=== PATIENT | male | born 1950 | race Caucasian/White ===

== ENCOUNTER 2020-12-02 10:20 | Inpatient (IN) | payer MEDICARE ==
[~2020-12-02] VITALS: Ht 180.3 cm; Wt 72.6 kg
[2020-12-02] MEDS ORDERED: PANTOPRAZOLE 40 MG 10ML VIAL IV STA (10:46)
[2020-12-02] MEDS ORDERED: SODIUM CHLORIDE 0.9% 500ML 500 ML IV ONE (11:00)
[2020-12-02 11:20] LABS: BASOPHILS # (AUTO) 0.1 (0.0-0.1); BASOPHILS % 0.9 % (0.0-1.0); EOSINOPHILS # (AUTO) 0.1 (0.0-0.4); EOSINOPHILS % 1.1 % (0.0-6.0); HEMATOCRIT 28.7 % (38.2-49.6); HEMOGLOBIN 9.1 g/dL (14.0-18.0); LYMPHOCYTES # (AUTO) 0.5 (1.0-3.2); LYMPHOCYTES % 6.8 % (18.0-39.1); MEAN CORPUSCULAR HEMOGLOBIN 28.3 pg (28-32); MEAN CORPUSCULAR HGB CONC 31.7 g/dL (31-35); MEAN CORPUSCULAR VOLUME 89.1 fL (81-99); MONOCYTES # (AUTO) 0.7 (0.2-0.8); MONOCYTES % 10.4 % (4.4-11.3); NEUTROPHILS # (AUTO) 5.7 (2.1-6.9); NEUTROPHILS % 80.4 % (38.7-80.0); RED BLOOD COUNT 3.22 x10e6/uL (4.3-5.7); RED CELL DISTRIBUTION WIDTH 17.8 % (11.7-14.4)
[2020-12-02 11:26] LABS: PLATELET COUNT 43 x10e3/uL (140-360)
[2020-12-02 11:45] LABS: INR 1.7; PROTHROMBIN TIME 21.2 seconds (11.9-14.5)
[2020-12-02 11:46] LABS: PARTIAL THROMBOPLASTIN TIME 34.5 seconds (23.8-35.5)
[2020-12-02 11:48] LABS: B-TYPE NATRIURETIC PEPTIDE2 99.8 pg/mL (0-100)
[2020-12-02 12:00] LABS: ALANINE AMINOTRANSFERASE 38 IU/L (0-55); ALBUMIN 2.3 g/dL (3.5-5.0); ALBUMIN/GLOBULIN RATIO 0.9 (0.8-2.0); ALKALINE PHOSPHATASE 122 IU/L (40-150); ANION GAP 12.5 mmol/L (8-16); BLOOD UREA NITROGEN 27 mg/dL (7-26); BUN/CREATININE RATIO 26 (6-25); CALCIUM 7.2 mg/dL (8.4-10.2); CARBON DIOXIDE 22 mmol/L (22-29); CHLORIDE 98 mmol/L (98-107); CREATINE KINASE 138 IU/L (30-200); CREATININE, SERUM 1.04 mg/dL (0.72-1.25); EST GLOMERULAR FILTRATION RATE > 60 ML/MIN (60-); GLUCOSE 166 mg/dL (74-118); MAGNESIUM 2.5 MG/DL (1.3-2.1); POTASSIUM 4.5 mmol/L (3.5-5.1); SODIUM 128 mmol/L (136-145)
[2020-12-02 12:42] LABS: PLATELET ESTIMATE MODERATELY DECREASED; PLATELET MORPHOLOGY COMMENT NORMAL
[2020-12-02] MEDS ORDERED: ONDANSETRON HCL INJ 2MG/ML 2ML 2 MG/ML VIAL IV PRN (15:15)
[2020-12-02] MEDS: LACTULOSE SYRUP 20 GM/30 ML UDC RC SCH (16:35)
[2020-12-02] MEDS ORDERED: CEFTRIAXONE SOD 1 GM in DEXTROSE 5% 50ML 50 ML IV SCH (18:00)
[2020-12-02] MEDS ORDERED: CEFTRIAXONE SOD 1 GM VIAL ONE (18:31)
[2020-12-02 19:30] LABS: CREATINE KINASE MB 2.4 ng/mL (0-5.0)
[2020-12-02 19:48] LABS: % IRON SATURATION 7 % (15-50); IRON 17 ug/dL (65-175); TOTAL IRON BINDING CAPACITY 228 ug/dL (261-478); TRANSFERRIN 163 mg/dL (174-364)
[2020-12-02] MEDS ORDERED: ALBUMIN 25% 25GM 100ML 0.25 GM/ML BTL IV ONE ×2 (20:30→20:45)
[2020-12-02] MEDS ORDERED: ACETAMINOPHEN 650 MG SUPP PR PRN (20:30)
[2020-12-02] MEDS ORDERED: ALBUMIN 25% 12.5GM 50ML 100 ML IV ONE (20:48)
[2020-12-02] MEDS ORDERED: ACETAMINOPHEN 650 MG SUPP PR ONE (20:49)
[2020-12-02] MEDS: RIFAXIMIN 550 MG TABLET PO SCH (20:50)
[2020-12-02] MEDS ORDERED: SODIUM CHLORIDE 0.9% 1000ML 1,000 ML IV ONE (21:15)
[2020-12-02 22:37] LABS: CLARITY,URINE CLOUDY (CLEAR); COLOR,URINE YELLOW (YELLOW); LEUKOCYTE ESTERASE ,URINE NEGATIVE (NEGATIVE)
[2020-12-02 22:38] LABS: KETONES,URINE NEGATIVE (NEGATIVE); NITRITE,URINE NEGATIVE (NEGATIVE); PROTEIN,URINE DIPSTICK NEGATIVE (NEGATIVE); URINE UROBILINOGEN 0.2 mg/dL (0.2 - 1)
[2020-12-02 22:49] LABS: BACTERIA,URINE MANY /HPF; RBC,URINE >50 /HPF (0-5)
[2020-12-02 22:50] LABS: EPITHELIAL CELLS,URINE FEW /LPF
[2020-12-03] MEDS: LACTULOSE SYRUP 20 GM/30 ML UDC RC SCH ×2 (00:05→00:14)
[2020-12-03 06:03] LABS: BASOPHILS % 0.4 % (0.0-1.0); EOSINOPHILS # (AUTO) 0.1 (0.0-0.4); HEMATOCRIT 24.4 % (38.2-49.6); HEMOGLOBIN 7.6 g/dL (14.0-18.0); LYMPHOCYTES # (AUTO) 0.3 (1.0-3.2); MEAN CORPUSCULAR HEMOGLOBIN 27.7 pg (28-32); MEAN CORPUSCULAR HGB CONC 31.1 g/dL (31-35); MEAN CORPUSCULAR VOLUME 89.1 fL (81-99); MONOCYTES # (AUTO) 0.4 (0.2-0.8); MONOCYTES % 7.2 % (4.4-11.3); NEUTROPHILS # (AUTO) 4.5 (2.1-6.9); RED BLOOD COUNT 2.74 x10e6/uL (4.3-5.7); RED CELL DISTRIBUTION WIDTH 17.5 % (11.7-14.4)
[2020-12-03 06:06] LABS: PLATELET COUNT 35 x10e3/uL (140-360)
[2020-12-03 06:15] LABS: INR 1.91; PROTHROMBIN TIME 23.4 seconds (11.9-14.5)
[2020-12-03 06:22] LABS: ALANINE AMINOTRANSFERASE 33 IU/L (0-55); ALBUMIN 2.7 g/dL (3.5-5.0); ALBUMIN/GLOBULIN RATIO 1.2 (0.8-2.0); ALKALINE PHOSPHATASE 109 IU/L (40-150); ANION GAP 13.1 mmol/L (8-16); BLOOD UREA NITROGEN 33 mg/dL (7-26); BUN/CREATININE RATIO 38 (6-25); CARBON DIOXIDE 21 mmol/L (22-29); CHLORIDE 101 mmol/L (98-107); CREATININE, SERUM 0.87 mg/dL (0.72-1.25); EST GLOMERULAR FILTRATION RATE > 60 ML/MIN (60-); GLUCOSE 153 mg/dL (74-118); POTASSIUM 4.1 mmol/L (3.5-5.1); SODIUM 131 mmol/L (136-145)
[2020-12-03 06:26] LABS: CALCIUM 6.9 mg/dL (8.4-10.2)
[2020-12-03] MEDS ORDERED: LACTULOSE SYRUP 20 GM/30 ML UDC ONE ×2 (06:34→06:35)
[2020-12-03] MEDS: LACTATED RINGER'S 1,000 ML INJ SCH ×3 (06:43→20:44)
[2020-12-03] MEDS: RIFAXIMIN 550 MG TABLET PO SCH ×2 (06:43→20:44)
[2020-12-03 06:51] LABS: CREATINE KINASE MB 5.7 ng/mL (0-5.0)
[2020-12-03] MEDS ORDERED: IRON SUCROSE 100 MG in SODIUM CHLORIDE 0.9% 100 ML 100 ML IV SCH (07:30)
[2020-12-03] MEDS: LACTULOSE SYRUP 20 GM/30 ML UDC PO SCH ×3 (08:33→20:44)
[2020-12-03] MEDS: PANTOPRAZOLE 40 MG 10ML VIAL IV SCH (08:33)
[2020-12-03] MEDS ORDERED: MIDODRINE HCL 5 MG TABLET PO NR (08:45)
[2020-12-03] MEDS: MIDODRINE HCL 5 MG TABLET PO SCH ×2 (09:02→12:16)
[2020-12-03] MEDS: CALCIUM ACETATE 667 MG GELCAP PO SCH ×2 (15:00→20:44)
[2020-12-03 16:19] VITALS: BP 89/58
[2020-12-03] MEDS ORDERED: CEFTRIAXONE SOD 1 GM VIAL ONE (16:48)
[2020-12-03] MEDS ORDERED: CEFTRIAXONE SOD 1 GM in SODIUM CHLORIDE 0.9% 50ML 50 ML IV SCH (17:00)
[2020-12-03] MEDS: MIDODRINE 2.5 MG TAB PO SCH (18:11)
[2020-12-03 21:00] VITALS: BP 91/40
[2020-12-04] VITALS (10 sets, daily range): BP systolic 85–99; BP diastolic 40–60
[2020-12-04] MEDS: LACTATED RINGER'S 1,000 ML INJ SCH (04:40)
[2020-12-04 05:41] LABS: EOSINOPHILS # (AUTO) 0.2 (0.0-0.4); EOSINOPHILS % 8.8 % (0.0-6.0); LYMPHOCYTES # (AUTO) 0.3 (1.0-3.2); LYMPHOCYTES % 10.8 % (18.0-39.1); MEAN CORPUSCULAR HEMOGLOBIN 27.9 pg (28-32); MEAN CORPUSCULAR VOLUME 89.8 fL (81-99); MONOCYTES # (AUTO) 0.2 (0.2-0.8); MONOCYTES % 8.8 % (4.4-11.3); NEUTROPHILS # (AUTO) 1.8 (2.1-6.9); NEUTROPHILS % 71.2 % (38.7-80.0); RED BLOOD COUNT 2.26 x10e6/uL (4.3-5.7); RED CELL DISTRIBUTION WIDTH 17.2 % (11.7-14.4)
[2020-12-04] MEDS: LACTULOSE SYRUP 20 GM/30 ML UDC PO SCH ×3 (06:01→22:20)
[2020-12-04 06:04] LABS: HEMATOCRIT 20.3 % (38.2-49.6); HEMOGLOBIN 6.3 g/dL (14.0-18.0); PLATELET COUNT 23 x10e3/uL (140-360)
[2020-12-04 06:22] LABS: ALANINE AMINOTRANSFERASE 27 IU/L (0-55); ALBUMIN 2.2 g/dL (3.5-5.0); ALBUMIN/GLOBULIN RATIO 1.2 (0.8-2.0); ALKALINE PHOSPHATASE 96 IU/L (40-150); ANION GAP 7.9 mmol/L (8-16); BLOOD UREA NITROGEN 24 mg/dL (7-26); BUN/CREATININE RATIO 34 (6-25); CALCIUM 7.1 mg/dL (8.4-10.2); CARBON DIOXIDE 23 mmol/L (22-29); CHLORIDE 100 mmol/L (98-107); CREATININE, SERUM 0.71 mg/dL (0.72-1.25); EST GLOMERULAR FILTRATION RATE > 60 ML/MIN (60-); GLUCOSE 114 mg/dL (74-118); POTASSIUM 3.9 mmol/L (3.5-5.1); SODIUM 127 mmol/L (136-145)
[2020-12-04 08:03] LABS: EOSINOPHILS % (MANUAL) 8 % (0-7); LYMPHOCYTES % (MANUAL) 8 % (19-48); MONOCYTES % (MANUAL) 3 % (3.4-9.0); NEUTROPHILS % (MANUAL) 81 % (40-74)
[2020-12-04 08:06] LABS: HYPOCHROMASIA SLIGHT; POLYCHROMASIA FEW
[2020-12-04 08:08] LABS: ANISOCYTOSIS SLIGHT; PLATELET ESTIMATE MARKEDLY DECREASED; PLATELET MORPHOLOGY COMMENT NORMAL; RBC MORPHOLOGY COMMENT ABNORMAL
[2020-12-04] MEDS: MIDODRINE 2.5 MG TAB PO SCH ×3 (08:35→16:56)
[2020-12-04] MEDS ORDERED: SODIUM CHLORIDE 0.9% 250ML 250 ML IV SCH (09:00)
[2020-12-04] MEDS: RIFAXIMIN 550 MG TABLET PO SCH ×2 (09:12→22:20)
[2020-12-04] MEDS: CALCIUM ACETATE 667 MG GELCAP PO SCH ×3 (09:12→22:20)
[2020-12-04] MEDS: PANTOPRAZOLE 40 MG 10ML VIAL IV SCH (09:16)
[2020-12-04] MEDS: IRON SUCROSE 100 MG in SODIUM CHLORIDE 0.9% 100 ML 100 ML IV SCH (10:28)
[2020-12-04] MEDS ORDERED: BUMETANIDE1 MG PO (11:09)
[2020-12-04] MEDS ORDERED: PROTONIX20 MG PO (11:09)
[2020-12-04] MEDS ORDERED: LACTULOSE20 GM/30 M PO (11:09)
[2020-12-04] MEDS ORDERED: BACLOFEN20 MG PO (11:09)
[2020-12-04] MEDS ORDERED: GLYCOPYRROLATE2 MG PO (11:09)
[2020-12-04] MEDS ORDERED: SPIRONOLACTONE50 MG PO (11:09)
[2020-12-04] MEDS ORDERED: ELIQUIS2.5 MG PO (11:09)
[2020-12-04] MEDS ORDERED: LYRICA150 MG PO (11:09)
[2020-12-04] MEDS ORDERED: ULTRAM50 MG PO (11:09)
[2020-12-04] MEDS ORDERED: MESTINON60 MG PO (11:09)
[2020-12-04] MEDS ORDERED: XIFAXAN550 MG PO (11:09)
[2020-12-04] MEDS ORDERED: ANORO ELLIPTA1 EACH (11:09)
[2020-12-04] MEDS: PYRIDOSTIGMINE BROMIDE 60 MG TAB PO SCH ×3 (12:11→22:20)
[2020-12-04] MEDS ORDERED: SODIUM CHLORIDE 0.9% 250ML 250 ML ONE ×2 (13:51→18:38)
[2020-12-04] MEDS: GUAIFENESIN/DEXTROMETHORPHAN LIQD 5 ML UDC PO PRN ×2 (16:56→23:42)
[2020-12-04] MEDS: SPIRONOLACTONE 25 MG TAB PO SCH (18:05)
[2020-12-04] MEDS: BUMETANIDE 1 MG TAB PO SCH (18:06)
[2020-12-04] MEDS ORDERED: NON-FORMULARY MEDICATION (Glycopyrrolate 1 MG) PO SCH (22:00)
[2020-12-04] MEDS: GLYCOPYRROLATE 1 MG TAB PO SCH (22:11)
[2020-12-04] MEDS: APIXAB 2.5 MG TABLET PO SCH (22:18)
[2020-12-04] MEDS: CEFTRIAXONE SOD 1 GM in SODIUM CHLORIDE 0.9% 50ML 50 ML IV SCH (22:19)
[2020-12-04] MEDS: BACLOFEN 10 MG TAB PO SCH (22:20)
[2020-12-04] MEDS: PREGABALIN 75 MG CAP PO SCH (22:20)
[2020-12-04] MEDS ORDERED: PHYTONADIONE 10 MG/ML AMP INJ ONE (22:45)
[2020-12-05] VITALS (8 sets, daily range): BP systolic 85–105; BP diastolic 50–64
[2020-12-05] MEDS ORDERED: PHYTONADIONE 10MG/ML 2 ML ONE (00:50)
[2020-12-05] MEDS ORDERED: SODIUM CHLORIDE 0.9% 50ML 50 ML ONE (01:03)
[2020-12-05] MEDS ORDERED: BENZONATATE 100 MG CAP PO PRN (03:45)
[2020-12-05] MEDS ORDERED: FUROSEMIDE INJ 10 MG/ML 2 ML VIAL IV STA (03:47)
[2020-12-05] MEDS ORDERED: FUROSEMIDE INJ 10 MG/ML 2 ML VIAL ONE (03:54)
[2020-12-05] MEDS: BENZONATATE 100 MG CAP PO SCH ×4 (04:00→22:14)
[2020-12-05] MEDS: LACTULOSE SYRUP 20 GM/30 ML UDC PO SCH ×3 (06:40→22:14)
[2020-12-05] MEDS: GLYCOPYRROLATE 1 MG TAB PO SCH ×3 (06:40→22:14)
[2020-12-05 07:05] LABS: BASOPHILS % 0.2 % (0.0-1.0); EOSINOPHILS % 0.4 % (0.0-6.0); HEMATOCRIT 29.7 % (38.2-49.6); HEMOGLOBIN 9.6 g/dL (14.0-18.0); LYMPHOCYTES # (AUTO) 0.2 (1.0-3.2); MEAN CORPUSCULAR HEMOGLOBIN 28.1 pg (28-32); MEAN CORPUSCULAR HGB CONC 32.3 g/dL (31-35); MEAN CORPUSCULAR VOLUME 86.8 fL (81-99); MONOCYTES # (AUTO) 0.2 (0.2-0.8); NEUTROPHILS # (AUTO) 5.2 (2.1-6.9); NEUTROPHILS % 93.2 % (38.7-80.0); RED BLOOD COUNT 3.42 x10e6/uL (4.3-5.7); RED CELL DISTRIBUTION WIDTH 16.1 % (11.7-14.4)
[2020-12-05 07:29] LABS: ANION GAP 12.2 mmol/L (8-16); BLOOD UREA NITROGEN 20 mg/dL (7-26); BUN/CREATININE RATIO 25 (6-25); CALCIUM 7.5 mg/dL (8.4-10.2); CARBON DIOXIDE 20 mmol/L (22-29); CHLORIDE 100 mmol/L (98-107); CREATININE, SERUM 0.81 mg/dL (0.72-1.25); EST GLOMERULAR FILTRATION RATE > 60 ML/MIN (60-); GLUCOSE 134 mg/dL (74-118); POTASSIUM 4.2 mmol/L (3.5-5.1); SODIUM 128 mmol/L (136-145)
[2020-12-05 07:35] LABS: PLATELET COUNT 24 x10e3/uL (140-360)
[2020-12-05] MEDS ORDERED: FUROSEMIDE INJ 10 MG/ML 4 ML VIAL ONE (08:34)
[2020-12-05] MEDS ORDERED: FUROSEMIDE INJ 10 MG/ML 4 ML VIAL IV ONE (09:00)
[2020-12-05] MEDS: MIDODRINE 2.5 MG TAB PO SCH ×2 (09:00→12:54)
[2020-12-05] MEDS: APIXAB 2.5 MG TABLET PO SCH ×2 (09:00→21:54)
[2020-12-05] MEDS: PYRIDOSTIGMINE BROMIDE 60 MG TAB PO SCH ×4 (09:34→22:13)
[2020-12-05] MEDS: BUMETANIDE 1 MG TAB PO SCH (09:34)
[2020-12-05] MEDS: SPIRONOLACTONE 25 MG TAB PO SCH (09:34)
[2020-12-05] MEDS: CALCIUM ACETATE 667 MG GELCAP PO SCH ×3 (09:35→22:13)
[2020-12-05] MEDS: RIFAXIMIN 550 MG TABLET PO SCH ×2 (09:35→22:14)
[2020-12-05] MEDS: PANTOPRAZOLE 40 MG 10ML VIAL IV SCH (09:40)
[2020-12-05] MEDS: GUAIFENESIN/DEXTROMETHORPHAN LIQD 5 ML UDC PO PRN ×2 (09:41→17:04)
[2020-12-05] MEDS: IRON SUCROSE 100 MG in SODIUM CHLORIDE 0.9% 100 ML 100 ML IV SCH (10:00)
[2020-12-05] MEDS: BALSAM PERU/CASTOR OIL 60 GM OINT...G. TP SCH (10:00)
[2020-12-05] MEDS ORDERED: DEXTROSE 50% SYRINGE 50 ML IV PRN (12:45)
[2020-12-05] MEDS: LINEZOLID 600 MG/D5W 300ML 300 ML IV SCH (13:31)
[2020-12-05 13:46] LABS: BAND NEUTROPHILS % (MANUAL) 8 %; LYMPHOCYTES % (MANUAL) 1 % (19-48); MONOCYTES % (MANUAL) 3 % (3.4-9.0); NEUTROPHILS % (MANUAL) 88 % (40-74); PLATELET ESTIMATE MARKEDLY DECREASED
[2020-12-05 13:47] LABS: ANISOCYTOSIS SLIGHT; PLATELET MORPHOLOGY COMMENT NORMAL; POLYCHROMASIA FEW; RBC MORPHOLOGY COMMENT NORMAL
[2020-12-05] MEDS: MIDODRINE HCL 5 MG TABLET PO SCH (17:00)
[2020-12-05] MEDS: INSULIN REGULAR, HUMAN 100 UNIT/1 ML 3ML VIAL SQ SCH ×2 (17:15→22:30)
[2020-12-05] MEDS ORDERED: FUROSEMIDE INJ 10 MG/ML 2 ML VIAL IV ONE (18:00)
[2020-12-05] MEDS: CEFTRIAXONE SOD 1 GM in SODIUM CHLORIDE 0.9% 50ML 50 ML IV SCH (21:54)
[2020-12-05] MEDS: BACLOFEN 10 MG TAB PO SCH (22:03)
[2020-12-05] MEDS: PREGABALIN 75 MG CAP PO SCH (22:03)
[2020-12-06] VITALS (7 sets, daily range): BP systolic 84–101; BP diastolic 47–58
[2020-12-06] MEDS: LINEZOLID 600 MG/D5W 300ML 300 ML IV SCH ×2 (01:00→14:02)
[2020-12-06 05:25] LABS: EOSINOPHILS % 0.7 % (0.0-6.0); HEMATOCRIT 28.2 % (38.2-49.6); LYMPHOCYTES # (AUTO) 0.2 (1.0-3.2); LYMPHOCYTES % 7.8 % (18.0-39.1); MEAN CORPUSCULAR HEMOGLOBIN 27.9 pg (28-32); MEAN CORPUSCULAR HGB CONC 31.9 g/dL (31-35); MEAN CORPUSCULAR VOLUME 87.3 fL (81-99); MONOCYTES # (AUTO) 0.2 (0.2-0.8); MONOCYTES % 6.4 % (4.4-11.3); NEUTROPHILS # (AUTO) 2.4 (2.1-6.9); NEUTROPHILS % 84.7 % (38.7-80.0); RED BLOOD COUNT 3.23 x10e6/uL (4.3-5.7); RED CELL DISTRIBUTION WIDTH 16.2 % (11.7-14.4)
[2020-12-06 05:44] LABS: PLATELET COUNT 17 x10e3/uL (140-360)
[2020-12-06 05:47] LABS: BLOOD UREA NITROGEN 21 mg/dL (7-26); BUN/CREATININE RATIO 23 (6-25); CALCIUM 7.5 mg/dL (8.4-10.2); CARBON DIOXIDE 21 mmol/L (22-29); CHLORIDE 99 mmol/L (98-107); CREATININE, SERUM 0.92 mg/dL (0.72-1.25); EST GLOMERULAR FILTRATION RATE > 60 ML/MIN (60-); GLUCOSE 183 mg/dL (74-118); SODIUM 126 mmol/L (136-145)
[2020-12-06] MEDS: BENZONATATE 100 MG CAP PO SCH ×3 (06:03→22:00)
[2020-12-06] MEDS: LACTULOSE SYRUP 20 GM/30 ML UDC PO SCH ×3 (06:03→18:00)
[2020-12-06] MEDS: GLYCOPYRROLATE 1 MG TAB PO SCH ×3 (06:03→22:00)
[2020-12-06] MEDS: BALSAM PERU/CASTOR OIL 60 GM OINT...G. TP SCH (07:15)
[2020-12-06] MEDS: APIXAB 2.5 MG TABLET PO SCH ×2 (09:00→20:00)
[2020-12-06] MEDS: MIDODRINE HCL 5 MG TABLET PO SCH ×3 (09:00→16:30)
[2020-12-06] MEDS: GUAIFENESIN/DEXTROMETHORPHAN LIQD 5 ML UDC PO PRN (09:21)
[2020-12-06] MEDS: RIFAXIMIN 550 MG TABLET PO SCH ×2 (09:22→21:00)
[2020-12-06] MEDS: BUMETANIDE 1 MG TAB PO SCH (09:22)
[2020-12-06] MEDS: PANTOPRAZOLE 40 MG 10ML VIAL IV SCH (09:22)
[2020-12-06] MEDS: CALCIUM ACETATE 667 MG GELCAP PO SCH ×3 (09:22→21:00)
[2020-12-06] MEDS: PYRIDOSTIGMINE BROMIDE 60 MG TAB PO SCH ×4 (09:22→21:00)
[2020-12-06] MEDS: SPIRONOLACTONE 25 MG TAB PO SCH (09:22)
[2020-12-06] MEDS: INSULIN REGULAR, HUMAN 100 UNIT/1 ML 3ML VIAL SQ SCH ×4 (09:30→21:00)
[2020-12-06] MEDS: IRON SUCROSE 100 MG in SODIUM CHLORIDE 0.9% 100 ML 100 ML IV SCH (11:32)
[2020-12-06] MEDS: PREGABALIN 75 MG CAP PO SCH (21:00)
[2020-12-06] MEDS: BACLOFEN 10 MG TAB PO SCH (21:00)
[2020-12-06] MEDS: CEFTRIAXONE SOD 1 GM in SODIUM CHLORIDE 0.9% 50ML 50 ML IV SCH (22:00)
[2020-12-07] VITALS: BP 83/53
[2020-12-07] MEDS: LINEZOLID 600 MG/D5W 300ML 300 ML IV SCH ×2 (01:51→13:30)
[2020-12-07 04:00] VITALS: BP 79/59
[2020-12-07] MEDS: GLYCOPYRROLATE 1 MG TAB PO SCH ×2 (06:00→14:00)
[2020-12-07] MEDS: BENZONATATE 100 MG CAP PO SCH ×3 (06:00→22:00)
[2020-12-07] MEDS: LACTULOSE SYRUP 20 GM/30 ML UDC PO SCH ×4 (06:54→23:27)
[2020-12-07] MEDS: INSULIN REGULAR, HUMAN 100 UNIT/1 ML 3ML VIAL SQ SCH ×4 (07:30→21:00)
[2020-12-07 08:00] VITALS: BP 79/59
[2020-12-07] MEDS: APIXAB 2.5 MG TABLET PO SCH ×2 (08:00→20:00)
[2020-12-07] MEDS: MIDODRINE HCL 5 MG TABLET PO SCH ×3 (08:00→16:00)
[2020-12-07 08:15] LABS: BASOPHILS % 0.3 % (0.0-1.0); EOSINOPHILS # (AUTO) 0.1 (0.0-0.4); EOSINOPHILS % 1.9 % (0.0-6.0); HEMATOCRIT 27.7 % (38.2-49.6); HEMOGLOBIN 8.8 g/dL (14.0-18.0); LYMPHOCYTES # (AUTO) 0.2 (1.0-3.2); MEAN CORPUSCULAR HEMOGLOBIN 28.8 pg (28-32); MEAN CORPUSCULAR HGB CONC 31.8 g/dL (31-35); MEAN CORPUSCULAR VOLUME 90.5 fL (81-99); MONOCYTES # (AUTO) 0.3 (0.2-0.8); MONOCYTES % 8.4 % (4.4-11.3); NEUTROPHILS # (AUTO) 2.7 (2.1-6.9); NEUTROPHILS % 83.8 % (38.7-80.0); RED BLOOD COUNT 3.06 x10e6/uL (4.3-5.7); RED CELL DISTRIBUTION WIDTH 16.9 % (11.7-14.4)
[2020-12-07 08:24] LABS: PLATELET COUNT 19 x10e3/uL (140-360)
[2020-12-07 08:27] LABS: INR 2.06; PROTHROMBIN TIME 24.8 seconds (11.9-14.5)
[2020-12-07 08:33] LABS: CALCIUM IONIZED 1.2 mmol/L (1.09-1.30)
[2020-12-07 08:38] LABS: ALANINE AMINOTRANSFERASE 25 IU/L (0-55); ALBUMIN/GLOBULIN RATIO 0.9 (0.8-2.0); ALKALINE PHOSPHATASE 87 IU/L (40-150); ANION GAP 9.6 mmol/L (8-16); BLOOD UREA NITROGEN 22 mg/dL (7-26); BUN/CREATININE RATIO 25 (6-25); CALCIUM 7.4 mg/dL (8.4-10.2); CARBON DIOXIDE 22 mmol/L (22-29); CHLORIDE 100 mmol/L (98-107); CREATININE, SERUM 0.89 mg/dL (0.72-1.25); EST GLOMERULAR FILTRATION RATE > 60 ML/MIN (60-); GLUCOSE 160 mg/dL (74-118); MAGNESIUM 1.6 MG/DL (1.3-2.1); POTASSIUM 3.6 mmol/L (3.5-5.1); SODIUM 128 mmol/L (136-145)
[2020-12-07] MEDS: RIFAXIMIN 550 MG TABLET PO SCH ×2 (09:00→23:27)
[2020-12-07] MEDS: SPIRONOLACTONE 25 MG TAB PO SCH (09:00)
[2020-12-07] MEDS: BALSAM PERU/CASTOR OIL 60 GM OINT...G. TP SCH (09:00)
[2020-12-07] MEDS: PYRIDOSTIGMINE BROMIDE 60 MG TAB PO SCH ×4 (09:00→23:27)
[2020-12-07] MEDS: CALCIUM ACETATE 667 MG GELCAP PO SCH ×3 (09:00→21:00)
[2020-12-07] MEDS: PANTOPRAZOLE 40 MG 10ML VIAL IV SCH (09:00)
[2020-12-07] MEDS: BUMETANIDE 1 MG TAB PO SCH (09:00)
[2020-12-07 09:20] LABS: LYMPHOCYTES % (MANUAL) 6 % (19-48); MONOCYTES % (MANUAL) 8 % (3.4-9.0); NEUTROPHILS % (MANUAL) 86 % (40-74)
[2020-12-07 10:06] VITALS: BP 75/58
[2020-12-07] MEDS: IRON SUCROSE 100 MG in SODIUM CHLORIDE 0.9% 100 ML 100 ML IV SCH (11:00)
[2020-12-07 11:12] LABS: CLARITY,URINE CLEAR (CLEAR); COLOR,URINE YELLOW (YELLOW)
[2020-12-07 11:13] LABS: KETONES,URINE NEGATIVE (NEGATIVE); LEUKOCYTE ESTERASE ,URINE SMALL (NEGATIVE); NITRITE,URINE NEGATIVE (NEGATIVE); PROTEIN,URINE DIPSTICK NEGATIVE (NEGATIVE); URINE UROBILINOGEN 0.2 mg/dL (0.2 - 1)
[2020-12-07 11:22] LABS: WBC,URINE (MAN) >50 /HPF (0-5)
[2020-12-07 11:23] LABS: BACTERIA,URINE FEW /HPF; EPITHELIAL CELLS,URINE MODERATE /LPF; YEAST,URINE MODERATE
[2020-12-07] MEDS: MEROPENEM 1GM 100 ML IV SCH ×2 (12:45→20:00)
[2020-12-07 20:00] VITALS: BP 86/56
[2020-12-07] MEDS: PREGABALIN 75 MG CAP PO SCH (21:00)
[2020-12-07] MEDS: BACLOFEN 10 MG TAB PO SCH (23:27)
[2020-12-08] VITALS (8 sets, daily range): BP systolic 78–130; BP diastolic 50–96
[2020-12-08] MEDS: GLYCOPYRROLATE 1 MG TAB PO SCH ×4 (00:24→21:26)
[2020-12-08] MEDS: LINEZOLID 600 MG/D5W 300ML 300 ML IV SCH ×2 (01:30→16:21)
[2020-12-08] MEDS: MEROPENEM 1GM 100 ML IV SCH ×3 (04:22→20:35)
[2020-12-08] MEDS: BENZONATATE 100 MG CAP PO SCH ×3 (06:31→21:27)
[2020-12-08 07:06] LABS: EOSINOPHILS # (AUTO) 0.1 (0.0-0.4); EOSINOPHILS % 2.9 % (0.0-6.0); HEMATOCRIT 25.6 % (38.2-49.6); HEMOGLOBIN 8.4 g/dL (14.0-18.0); LYMPHOCYTES # (AUTO) 0.2 (1.0-3.2); LYMPHOCYTES % 4.8 % (18.0-39.1); MEAN CORPUSCULAR HEMOGLOBIN 29.1 pg (28-32); MEAN CORPUSCULAR HGB CONC 32.8 g/dL (31-35); MEAN CORPUSCULAR VOLUME 88.6 fL (81-99); MONOCYTES # (AUTO) 0.3 (0.2-0.8); NEUTROPHILS # (AUTO) 3.1 (2.1-6.9); RED BLOOD COUNT 2.89 x10e6/uL (4.3-5.7); RED CELL DISTRIBUTION WIDTH 17.1 % (11.7-14.4)
[2020-12-08 07:09] LABS: PLATELET COUNT 20 x10e3/uL (140-360)
[2020-12-08] MEDS: INSULIN REGULAR, HUMAN 100 UNIT/1 ML 3ML VIAL SQ SCH ×4 (07:30→20:44)
[2020-12-08 07:42] LABS: ALANINE AMINOTRANSFERASE 23 IU/L (0-55); ALBUMIN 1.8 g/dL (3.5-5.0); ALBUMIN/GLOBULIN RATIO 0.8 (0.8-2.0); ALKALINE PHOSPHATASE 91 IU/L (40-150); ANION GAP 10.6 mmol/L (8-16); BLOOD UREA NITROGEN 22 mg/dL (7-26); BUN/CREATININE RATIO 27 (6-25); CALCIUM 7.1 mg/dL (8.4-10.2); CARBON DIOXIDE 22 mmol/L (22-29); CHLORIDE 100 mmol/L (98-107); CREATININE, SERUM 0.81 mg/dL (0.72-1.25); EST GLOMERULAR FILTRATION RATE > 60 ML/MIN (60-); GLUCOSE 180 mg/dL (74-118); POTASSIUM 3.6 mmol/L (3.5-5.1); SODIUM 129 mmol/L (136-145)
[2020-12-08 07:52] LABS: CALCIUM IONIZED 1.1 mmol/L (1.09-1.30)
[2020-12-08 08:28] LABS: PLATELET ESTIMATE MARKEDLY DECREASED
[2020-12-08 08:29] LABS: PLATELET MORPHOLOGY COMMENT FEW LARGE
[2020-12-08] MEDS: APIXAB 2.5 MG TABLET PO SCH ×2 (09:01→20:32)
[2020-12-08] MEDS: MIDODRINE HCL 5 MG TABLET PO SCH ×3 (09:01→16:28)
[2020-12-08] MEDS: PANTOPRAZOLE 40 MG 10ML VIAL IV SCH (09:02)
[2020-12-08] MEDS: SPIRONOLACTONE 25 MG TAB PO SCH (09:02)
[2020-12-08] MEDS: RIFAXIMIN 550 MG TABLET PO SCH ×2 (09:03→20:33)
[2020-12-08] MEDS: BALSAM PERU/CASTOR OIL 60 GM OINT...G. TP SCH (09:03)
[2020-12-08] MEDS: LACTULOSE SYRUP 20 GM/30 ML UDC PO SCH ×2 (09:03→09:06)
[2020-12-08] MEDS: PYRIDOSTIGMINE BROMIDE 60 MG TAB PO SCH ×4 (09:03→20:33)
[2020-12-08] MEDS: BUMETANIDE 1 MG TAB PO SCH (09:03)
[2020-12-08] MEDS: CALCIUM ACETATE 667 MG GELCAP PO SCH ×3 (09:03→20:32)
[2020-12-08] MEDS: IRON SUCROSE 100 MG in SODIUM CHLORIDE 0.9% 100 ML 100 ML IV SCH (11:30)
[2020-12-08] MEDS: PREGABALIN 75 MG CAP PO SCH (20:32)
[2020-12-08] MEDS: BACLOFEN 10 MG TAB PO SCH (20:32)
[2020-12-09] VITALS (8 sets, daily range): BP systolic 87–104; BP diastolic 47–66
[2020-12-09] MEDS: LINEZOLID 600 MG/D5W 300ML 300 ML IV SCH ×2 (01:49→17:02)
[2020-12-09] MEDS: MEROPENEM 1GM 100 ML IV SCH ×3 (04:15→20:00)
[2020-12-09] MEDS: BENZONATATE 100 MG CAP PO SCH ×3 (05:29→22:00)
[2020-12-09] MEDS: GLYCOPYRROLATE 1 MG TAB PO SCH ×3 (05:29→22:00)
[2020-12-09 05:51] LABS: EOSINOPHILS # (AUTO) 0.1 (0.0-0.4); EOSINOPHILS % 3.8 % (0.0-6.0); HEMOGLOBIN 8.3 g/dL (14.0-18.0); LYMPHOCYTES # (AUTO) 0.2 (1.0-3.2); MEAN CORPUSCULAR HEMOGLOBIN 28.3 pg (28-32); MEAN CORPUSCULAR HGB CONC 31.9 g/dL (31-35); MEAN CORPUSCULAR VOLUME 88.7 fL (81-99); MONOCYTES # (AUTO) 0.3 (0.2-0.8); MONOCYTES % 8.2 % (4.4-11.3); NEUTROPHILS % 81.2 % (38.7-80.0); RED BLOOD COUNT 2.93 x10e6/uL (4.3-5.7); RED CELL DISTRIBUTION WIDTH 17.2 % (11.7-14.4)
[2020-12-09 06:10] LABS: PLATELET COUNT 22 x10e3/uL (140-360)
[2020-12-09 06:15] LABS: ALANINE AMINOTRANSFERASE 22 IU/L (0-55); ALBUMIN 1.7 g/dL (3.5-5.0); ALBUMIN/GLOBULIN RATIO 0.7 (0.8-2.0); ALKALINE PHOSPHATASE 84 IU/L (40-150); ANION GAP 7.9 mmol/L (8-16); BLOOD UREA NITROGEN 22 mg/dL (7-26); BUN/CREATININE RATIO 30 (6-25); CALCIUM 7.1 mg/dL (8.4-10.2); CARBON DIOXIDE 25 mmol/L (22-29); CHLORIDE 99 mmol/L (98-107); CREATININE, SERUM 0.74 mg/dL (0.72-1.25); EST GLOMERULAR FILTRATION RATE > 60 ML/MIN (60-); GLUCOSE 174 mg/dL (74-118); POTASSIUM 3.9 mmol/L (3.5-5.1); SODIUM 128 mmol/L (136-145)
[2020-12-09] MEDS: MIDODRINE HCL 5 MG TABLET PO SCH ×3 (08:19→17:05)
[2020-12-09] MEDS: APIXAB 2.5 MG TABLET PO SCH ×2 (08:19→20:00)
[2020-12-09] MEDS: CALCIUM ACETATE 667 MG GELCAP PO SCH ×3 (08:20→21:00)
[2020-12-09] MEDS: PANTOPRAZOLE 40 MG 10ML VIAL IV SCH (08:20)
[2020-12-09] MEDS: BUMETANIDE 1 MG TAB PO SCH (08:20)
[2020-12-09] MEDS: PYRIDOSTIGMINE BROMIDE 60 MG TAB PO SCH ×4 (08:20→21:00)
[2020-12-09] MEDS: SPIRONOLACTONE 25 MG TAB PO SCH (08:20)
[2020-12-09] MEDS: BALSAM PERU/CASTOR OIL 60 GM OINT...G. TP SCH (08:21)
[2020-12-09] MEDS: RIFAXIMIN 550 MG TABLET PO SCH ×2 (08:21→21:00)
[2020-12-09] MEDS: LACTULOSE SYRUP 20 GM/30 ML UDC PO SCH ×2 (08:29→17:02)
[2020-12-09 08:31] LABS: ANISOCYTOSIS SLIGHT; EOSINOPHILS % (MANUAL) 1 % (0-7); LYMPHOCYTES % (MANUAL) 4 % (19-48); MONOCYTES % (MANUAL) 5 % (3.4-9.0); NEUTROPHILS % (MANUAL) 90 % (40-74); PLATELET ESTIMATE MARKEDLY DECREASED; PLATELET MORPHOLOGY COMMENT NORMAL; RBC MORPHOLOGY COMMENT NORMAL
[2020-12-09] MEDS: INSULIN REGULAR, HUMAN 100 UNIT/1 ML 3ML VIAL SQ SCH ×4 (10:14→21:00)
[2020-12-09] MEDS: IRON SUCROSE 100 MG in SODIUM CHLORIDE 0.9% 100 ML 100 ML IV SCH (11:27)
[2020-12-09] MEDS: PREGABALIN 75 MG CAP PO SCH (21:00)
[2020-12-09] MEDS: BACLOFEN 10 MG TAB PO SCH (21:00)
[2020-12-10] VITALS: BP 100/66
[2020-12-10] MEDS: LINEZOLID 600 MG/D5W 300ML 300 ML IV SCH ×2 (01:42→14:19)
[2020-12-10 04:00] VITALS: BP 82/52
[2020-12-10] MEDS: MEROPENEM 1GM 100 ML IV SCH ×2 (04:00→13:14)
[2020-12-10] MEDS: GLYCOPYRROLATE 1 MG TAB PO SCH ×2 (05:10→13:23)
[2020-12-10] MEDS: BENZONATATE 100 MG CAP PO SCH ×2 (05:10→13:23)
[2020-12-10] MEDS: INSULIN REGULAR, HUMAN 100 UNIT/1 ML 3ML VIAL SQ SCH ×3 (07:30→16:30)
[2020-12-10 07:57] VITALS: BP 88/53
[2020-12-10 08:14] VITALS: BP 88/53
[2020-12-10] MEDS: TRAMADOL HCL 50 MG TAB PO PRN ×2 (09:27→10:01)
[2020-12-10] MEDS: LACTULOSE SYRUP 20 GM/30 ML UDC PO SCH ×3 (09:29→17:49)
[2020-12-10] MEDS: SPIRONOLACTONE 25 MG TAB PO SCH (09:29)
[2020-12-10] MEDS: BUMETANIDE 1 MG TAB PO SCH (09:29)
[2020-12-10] MEDS: PYRIDOSTIGMINE BROMIDE 60 MG TAB PO SCH ×3 (09:29→17:49)
[2020-12-10] MEDS: RIFAXIMIN 550 MG TABLET PO SCH (09:29)
[2020-12-10] MEDS: CALCIUM ACETATE 667 MG GELCAP PO SCH ×2 (09:29→17:49)
[2020-12-10] MEDS: MIDODRINE HCL 5 MG TABLET PO SCH ×3 (09:29→17:49)
[2020-12-10] MEDS: APIXAB 2.5 MG TABLET PO SCH (09:29)
[2020-12-10] MEDS: PANTOPRAZOLE 40 MG 10ML VIAL IV SCH (09:30)
[2020-12-10] MEDS: BALSAM PERU/CASTOR OIL 60 GM OINT...G. TP SCH (10:01)
[2020-12-10] MEDS: IRON SUCROSE 100 MG in SODIUM CHLORIDE 0.9% 100 ML 100 ML IV SCH (11:01)
[2020-12-10 11:53] VITALS: BP 101/57
[2020-12-10 16:24] VITALS: BP 97/71
== END 2020-12-10 20:26 | DRG 441 ==
LOC: ER 10:45 → ERHOLD 15:17 → MED/SURG3 12-03 15:55
PROC: 02HV33Z Insertion of Infusion Device into Superior Vena Cava, Percutaneous Approach (ICD-10-PCS; principal; 2020-12-02)
PROC: 30233N1 Transfusion of Nonautologous Red Blood Cells into Peripheral Vein, Percutaneous Approach (ICD-10-PCS; 2020-12-04)
DX: K72.90 Hepatic failure, unspecified without coma (principal); K65.2 Spontaneous bacterial peritonitis; E87.1 Hypo-osmolality and hyponatremia; N39.0 Urinary tract infection, site not specified; Z16.22 Resistance to vancomycin related antibiotics; K70.30 Alcoholic cirrhosis of liver without ascites; D64.9 Anemia, unspecified; R73.9 Hyperglycemia, unspecified; D69.59 Other secondary thrombocytopenia; J44.9 Chronic obstructive pulmonary disease, unspecified; B18.2 Chronic viral hepatitis C; Z20.822 Contact with and (suspected) exposure to COVID-19; B96.20 Unspecified Escherichia coli [E. coli] as the cause of diseases classified elsewhere; E86.0 Dehydration; E88.09 Other disorders of plasma-protein metabolism, not elsewhere classified; L89.152 Pressure ulcer of sacral region, stage 2; L89.626 Pressure-induced deep tissue damage of left heel
CPT/HCPCS: 36415; 51700; 70450; 71045; 76705; 80048; 80053; 81001; 82105; 82140; 82270; 82550; 82553; 82607; 82746; 82948; 83540; 83605; 83735; 83880; 83930; 83935; 84466; 84484; 85025; 85045; 85610; 85730; 86850; 86900; 86920; 87040; 87071; 87086; 87186; 87205; 93005; 93306; 97139; 99251; 99285; J0696; J1756; J1817; J1940; J2020; J3430; J7030; J7040; J7050; J7121; P9016; U0002